=== PATIENT | female | born 1960 | race Caucasian/White ===

== ENCOUNTER 2017-05-26 10:08 | Emergency (ER) | payer MEDICAID ==
--- NOTE | 2017-05-26 10:16 | ED Physician Chart ---
Chief Complaint/HPI - Patient Information Date Seen:: 05/26/17 Time Seen:: 10:16 Chief Complaint:: painful shingles in the left axillary region. History of Present Illness:: This 56-year-old female with a diagnosis of shingles in the left T1 distribution was made 7 days ago. The patient presents today complaining of severe pain in the T1 distribution over the left scapular region. She rates the pain as 8/10 in severity and says it is a dull deep pain. She also has pain in the left axillary region. The patient was diagnosed with breast cancer in October 2016. She underwent a lumpectomy in December 2016. Her first dose of chemotherapy was early in March and her second round of chemotherapy was in April. The patient had removal of PICC lines due to infection twice in early March. Her third round of chemotherapy had to be held because of the shingles infection. The patient denies any fever or chills or diaphoresis. The patient has a incidental complaint of redness in her left eye which started 3-4 days ago. He has no pain in the left eye or foreign body sensation. Her vision has not been reduced in the left eye. The redness has been accompanied by discharge on her eyelashes. Review of Systems - Review of Systems General/Constitutional: No fever, No chills, No weakness, No diaphoresis Skin: Skin lesions, Rash (the patient has opened vesicles in the T1 distribution in the left axillary and left scapulary regions.) Head: No headache, No light-headedness Eyes: No loss of vision, No pain, No diplopia, Other (patient has a prominent redness noted over the white part of her left eye.) ENT: No earache, No sore throat, No tinnitus Neck: No neck pain, No swelling, No stiffness, No mass noted Cardio Vascular: No chest pain, No palpitations, No orthopnea, No edema Pulmonary: No cough, No sputum, Other (patient states she gets short of breath when she has the severe pain in her back.) GI: Nausea, No vomiting, No diarrhea, No pain, Other (patient states that nausea is from her chemotherapy.) G/U: No dysuria, No frequency, No hematuria Administrative Support Associate: No abnormal vaginal bleed Musculoskeletal: No bone or joint pain, Back pain (back pain is in the scapular region inconsistent with the T1 dermatome.) Hematopoietic: Bruising, Other (the patient has easy bruising in both the upper and lower extremity.) Allergic/Immuno: No urticaria, No angioedema Neurological: No syncope, No paresthesia, No headache, No seizure, No vertigo Family Medical History - Family Member Mother History Unknown: Yes Physical Exam - Physical Examination General/Constitutional: Awake, Well-developed, well-nourished, Alert, Non-toxic appearing, Ambulatory Other Gen/Cons comments:: Moderate distress secondary to her complained of shingles pain. Eyes: PERRL, EOMI Other Eyes comments:: Patient has a large subconjunctival hemorrhage involving the sclera of her left eye. Bony is clear and I do not appreciate any evidence of a discharge from the eye. Pupils are equal and react to light. Visual acuity is better in the left than the right eye. Other Skin comments:: Patient has a rash in the dermatome distribution of T1 on the left side. The rash is consistent with herpes zoster. The patient also has areas of ecchymotic discoloration in both the upper and lower extremities. No petechiae were found. ENMT: External ears, nose nl, Nasal exam nl, Lips, teeth, gums nl, Oropharynx nl , Tonsils nl Neck: Full ROM w/o pain, No JVD, No nuchal rigidity, No mass, No stridor Respiratory: Nl effort/Exclusion, No Wheeze/Rhonchi/Rales Cardio Vascular: No murmur, gallop, rubs, NL S1 S2 Other Cardio Vascular comments:: Good pulses in all 4 extremities. GI: No tenderness/rebounding/guarding, No organomegaly, No hernia, Normal BS's, Nondistended, No mass/bruits, No McBurney tenderness Other comments:: Mild CVA right sided tenderness on percussion. She has a history of a right renal polyp. Extremities: No tenderness or effusion, Full ROM, normal strength in all extremities, No edema Other Extremities comments:: No calf tenderness and Candice's sign was negative. Neuro/Psych: Alert/oriented, Normal sensory exam, Normal motor strength, Judgement/insight normal, Mood normal, Normal gait, No focal deficits Misc: Normal back, No paraspinal tenderness Labs/Radiology/EKG Results - Lab Results Results: Laboratory Tests 05/26/17 05/26/17 05/26/17 10:50 10:50 10:50 WBC 9.5 RBC 4.91 Hgb 15.4 Hct 44.7 MCV 90.9 MCH 31.3 H MCHC Differential 34.4 RDW 14.3 Plt Count 463 H MPV 7.6 Neutrophils % 77.2 Lymphocytes % 17.1 L Monocytes % 4.0 Eosinophils % 1.1 Basophils % 0.6 Sodium 131 L Potassium 2.7 L* Chloride 99 Carbon Dioxide 21.5 Anion Gap 13.2 BUN 32 H Creatinine 1.0 Est GFR ( Amer) > 60.0 Est GFR (Non-Af Amer) > 60.0 BUN/Creatinine Ratio 32.0 Glucose 135 H Whole Bld Lactic Acid 4.58 H* Calcium 10.3 Total Bilirubin 0.5 AST 28 ALT 49 Alkaline Phosphatase 66 Total Protein 7.0 Albumin 4.3 Globulin 2.7 Albumin/Globulin Ratio 1.6 The CBC shows a white count of 9.5 and a hemoglobin level of 15.4 platelets were 463 patient had mild hyponatremia and moderate hypokalemia P the lactic acid was elevated at a level of 4.58 I do not feel that this was clinically significant in that the patient had no leukocytosis or leukopenia and no fever or chills. EKG interpretation: She has normal sinus rhythm at a rate of 75 and without ectopy. [place] is normal. [place] interval and QRS duration are both within normal limits. Prolongation of the QT interval. No ST segment elevation or depression. No Q waves. No U waves. Impression: No evidence for hypokalemia. No ischemic findings. Normal EKG. Assessment - Assessment General Assessment: CASE SUMMARY: This 56-year-old female presents with a complaint of pain associated with shingles involving the left T dermatome. The rash is extensive in the left axillary region but minimal over the left scapula where the patient is having her most severe pain. Patient also complains of redness in the left eye. On examination the redness in the left eye is most consistent with a several conjunctival hemorrhage. No evidence of herpetic involvement of the eye. The patient's symptoms were addressed with 6 mg of morphine administered IM. had significant relief of the pain prior to discharge. Incidentally it was found that the patient was hypokalemic with a potassium of 2.7. This was addressed with 40 mEq of by mouth potassium. The patient had no EKG changes suggestive of hypokalemia. The patient was advised to follow-up with her oncologist early this coming week. Patient was instructed to return to the emergency department for any significant worsening of her symptoms. Patient was discharged with a prescription for Ashton 10/325, dispense 12 to be taken one every 6 hours as needed for severe pain. The patient was given the usual cautions regarding use with alcohol, driving and activities requiring alertness. MDM FOR UPPER LT SIDED BACK PAIN: NOT CELLULITIS BASED ON HISTORY AND EXAM. NOT PNEUMONIA BASED ON HISTORY AND EXAM. NOT EPIDURAL ABSCESS BASED ON HISTORY AND EXAM. ED Septic Shock - . Is Septic Shock (SBP<90, OR Lactate>4 mmol\L) present?: No Reassessment (Disposition) - Reassessment Reassessment Condition:: Improved - Diagnosis Diagnosis:: 1. UPPER BACK PAIN DUE TO HERPES ZOSTER 2. Subconjunctival hemorrhage of the left eye. 3. Moderate to severe hypokalemia 4. Stage I breast cancer. - Aftercare/Follow up Instructions Aftercare/Follow-Up Instructions:: Counseled pt regarding lab results/diagnosis & need follow up Notes:: 1. Return to the emergency room if his symptoms significantly worsen. Follow- up with her primary care physician early this coming week. 2. Use the Ashton for treatment of severe pain due to shingles. The medics with alcohol and don't take it within [address] her activities requiring alertness. - Patient Disposition Discharge/Transfer:: Home ED Discharge Plan - Patient Disposition Prescriptions: Hydrocodone/APAP 10 mg/325 mg [Ashton 10 mg/325 mg] 1 tab PO Q6H PRN #12 tab PRN Reason: Pain (Severe) Instructions: Shingles, [id number], Hypokalemia, Subconjunctival Hemorrhage
[2017-05-26] MEDS ORDERED: Morphine Sulfate 4 mg/mL 1mL Syr ONE (10:33)
[2017-05-26 11:01] LABS: % BASOPHILS 0.6 % (0.0-2.0); % EOSINOPHILS 1.1 % (0.0-5.0); % LYMPHOCYTES 17.1 % (20.0-50.0); % NEUTROPHILS 77.2 % (40.0-80.0); HEMATOCRIT 44.7 % (35.0-45.0); HEMOGLOBIN 15.4 gm/dL (11.7-15.5); MEAN CELL VOLUME 90.9 fl (81-100); MEAN CORPUSCULAR HEMOGLOBIN 31.3 pg (27.0-31.0); MEAN CORPUSCULAR HGB CONC 34.4 pg (28.0-36.0); MEAN PLATELET VOLUME 7.6 fl; NEUTROPHILE ABSOLUTE 7.3 Th/cmm (1.8-8.0); PLATELET COUNT 463 Th/cmm (150-400); RED BLOOD COUNT 4.91 Mil/cmm (3.80-5.10); RED CELL DISTRIBUTION WIDTH 14.3 % (11.5-20.0); WHITE BLOOD COUNT 9.5 Th/cmm (4.8-10.8)
[2017-05-26 11:19] LABS: ALB/GLOB RATIO 1.6 (1.0-1.8); ALKALINE PHOSPHATASE 66 U/L (34-104); ANION GAP 13.2 (7.0-16.0); BILIRUBIN,TOTAL 0.5 mg/dL (0.3-1.0); BUN - UREA NITROGEN 32 mg/dL (7-25); CALCIUM SERUM 10.3 mg/dL (8.6-10.3); CARBON DIOXIDE 21.5 mEq/L (21.0-31.0); CHLORIDE 99 mEq/L (98-107); GLUCOSE 135 mg/dL (70-105); SGOT 28 U/L (13-39); SGPT/ALT 49 U/L (7-52); SODIUM SERUM 131 mEq/L (136-145)
[2017-05-26 11:23] LABS: POTASSIUM SERUM 2.7 mEq/L (3.5-5.1)
[2017-05-26] MEDS ORDERED: Potassium Chloride Elixir 20 mEq /15 mL UDC PO ONE (11:27)
[2017-05-26] MEDS ORDERED: Potassium Chloride Elixir 20 mEq /15 mL UDC GT ONE (11:27)
[2017-05-26] MEDS ORDERED: Potassium Chloride Elixir 20 mEq /15 mL UDC ONE (11:45)
== END 2017-05-26 12:26 | disposition home or self-care (01) ==
LOC: ER 10:08
DX: B02.9 Zoster without complications (principal); H11.32 Conjunctival hemorrhage, left eye; E87.6 Hypokalemia; C50.919 Malignant neoplasm of unspecified site of unspecified female breast
CPT/HCPCS: 36415-UA; 80053-TC; 83605; 85025-TC; 93005; Z7502